=== PATIENT | female | born 2000 | race Caucasian/White ===

== ENCOUNTER 2023-11-23 18:04 | Emergency (ER) | payer BC, SELFPAY ==
--- NOTE | 2023-11-23 18:09 | ED.GENADULT ---
HPI - General Adult General Chief complaint: Unspecified Stated complaint: pain in left breast Time Seen by Provider: 11/23/23 18:06 Source: patient Mode of arrival: ambulatory Limitations: no limitations History of Present Illness HPI narrative: Judit is a 23-year-old female patient presenting to the clinic today with complaints of pain in her left lateral lower breast. She is currently . States symptoms started 2 days ago. Experienced some chills today. Denies any known fever or body aches. No nausea or vomiting. Denies any purulent discharge coming from the nipple. Related Data Allergies Allergy/AdvReac Type Severity Reaction Status Date / Time No Known Allergies Allergy Verified 11/23/23 18:19 Review of Systems Review of Systems: Pertinent positives per HPI. Patient denies any fever, chills, rash, headache, visual changes, dizziness, cough, runny nose, sore throat, shortness of breath, chest pain, palpitations, nausea, vomiting, diarrhea, constipation, abdominal pain, or any urinary issues. PMFSH Comments At the time of my signature, I reviewed and agree with the nursing past medical, surgical, social, and family history. There is no relevant family history pertinent to the patient complaint. Exam Narrative: General: Well-developed, well nourished, in no apparent distress Head: Normocephalic, atraumatic. Cardio: Regular rate and rhythm, s1 and s2 normal, no murmur appreciated. Resp: Clear to auscultation bilaterally, no rhonchi, rales, wheezing or rubs. Integumentary: [place], warm, and dry, intact without lesion, firm area with mild redness and mild erythema to the left lower lateral breast measuring approximately 2 cm, tender to palpation, no fluctuance palpable Course Course Emergency Course: Portions of this record may have been created with voice recognition software. Level of Care: Express Care Visit Vital Signs Vital signs: Vital signs reviewed Medical Decision Making MDM Narrative Medical decision making narrative: At the time of visit patient is resting comfortably on the exam table. Patient appears to be nontoxic. Plan: I suspect patient may have early mastitis however cannot rule out a clogged milk duct or possible early abscess formation. Will place the patient on cephalexin 500 mg 4 times daily x7 days and have her follow-up with her woman's health provider in 3 to 4 days. Supportive measures were discussed with the patient and they voiced understanding discharge instructions and agrees to treatment plan. Return precautions reviewed Differential Diagnosis Differential Diagnosis: Mastitis, clogged milk duct, abscess, cellulitis, cancer Discharge Plan Discharge Clinical Impression: Mastitis Patient Disposition: Home, Self-Care Condition: Stable Instructions: Antibiotic Form, Mastitis (ED) Additional Instructions: Will treat you as an early mastitis. Differential diagnosis include clogged milk duct or early abscess Take Keflex as prescribed May massage the area to see if this helps alleviate pain May apply warm compresses to the area 4-6 times per day May continue feedings on the left breast May take Tylenol/Motrin as needed for pain Follow-up with your women's health provider in 2 days If symptoms worsen recommend going to the emergency room for further evaluation-fever, chills, body aches, nausea, vomiting, increase in swelling, redness, or pain Prescriptions: New cephalexin 500 mg capsule 500 mg PO QID 7 Days Qty: 28 0RF Follow-up/Referrals: [facility] [Primary Care Provider] - Time of Disposition: 18:28 Quality NIHSS Nursing Documentation ED NIHSS nursing documentation: reviewed/agree
[2023-11-23 18:14] VITALS: BP 125/77; PULSE 81; RESP 18; TEMP 36.8; O2SAT 100
== END 2023-11-23 18:36 | disposition home or self-care (01) ==
PROVIDERS: Emergency Provider Nurse Practitioner Family; Referring Provider Family Medicine
DX: N61.0 Mastitis without abscess (principal)
CPT/HCPCS: 99203; G0463